=== PATIENT | male | born 1965 | race Caucasian/White ===

== ENCOUNTER 2023-06-26 07:31 | Inpatient (IN) | payer MEDICAID, MEDICARE ==
[~2023-06-26] VITALS: Ht 182.9 cm; Wt 111.7 kg
[2023-06-26] MEDS ORDERED: PIPERACILLIN-TAZOB 3.375GM 100 ML IV ONE (08:00)
[2023-06-26 08:04] LABS: Basophils # (auto) 0.1 10 ^3/uL (0-0.2); Eosinophils # (auto) 1.2 10 ^3/uL (0-0.8); Hematocrit 38.5 % (41.0-53.0); Hemoglobin 12.2 g/dL (13.5-17.5); Mean Corpuscular Volume 83.3 fL (80.0-100.0); Monocytes # (auto) 0.6 10 ^3/uL (0-1.3)
[2023-06-26 08:06] LABS: Basophils % (auto) 1.3 % (0.0-2.0); Eosinophils % (auto) 13.6 % (0.0-7.0); Lymphocytes # (auto) 1.8 10 ^3/uL (0.4-5.4); Lymphocytes % (auto) 20.3 % (10.0-50.0); Mean Corpuscular Hemoglobin 26.5 pg (28.0-32.0); Mean Corpuscular Hgb Conc. 31.8 g/dL (32.0-36.0); Monocytes % (auto) 7.1 % (0.0-12.0); Neutrophils # (auto) 5.3 10 ^3/uL (1.6-8.6); Neutrophils % (auto) 57.7 % (37.0-80.0); Nucleated Red Blood Cells % 0.1 %; Red Blood Cells 4.61 10^6/uL (4.5-5.90); Red Cell Distribution Width 16.4 % (11.8-14.3); White Blood Cell 9.1 10^3/uL (4.4-10.8)
[2023-06-26 08:22] LABS: Alanine Aminotransferase 22 U/L (7-40); Albumin 4.5 g/dL (3.2-4.8); Alkaline Phosphatase 90 U/L (46-116); Anion Gap 9 (5-15); Aspartate Aminotransferase 15 U/L (13-40); BUN/Creatinine Ratio 20.3 (10.0-20.0); Bilirubin, Total 0.2 mg/dL (0.2-1.0); Blood Urea Nitrogen 25 mg/dL (9-23); Calcium 9.6 mg/dL (8.5-10.1); Carbon Dioxide 26 mmol/L (20-30); Chloride 105 mmol/L (98-107); Glucose 174 mg/dL (74-106); Lactic Acid w/Reflex 2.8 mmol/L (0.4-2.0); Potassium 3.8 mmol/L (3.5-5.1); Sodium 140 mmol/L (136-145); Total Protein 7.3 g/dL (5.7-8.2)
[2023-06-26 10:01] VITALS: PULSE 98; RESP 18; O2SAT 97
[2023-06-26] MEDS ORDERED: ALBUTEROL SULF 2.5 MG/0.5ML(0.5%) NEB SOLN NEB ONE (10:15)
[2023-06-26] MEDS ORDERED: IPRATROPIUM BROM 0.5 MG/2.5ML INH SOL NEB ONE (10:15)
[2023-06-26] MEDS ORDERED: ALBUTEROL MEDNEB 2.5 mg/3ml NEB ONE (10:49)
[2023-06-26] MEDS ORDERED: DEXTROSE (50%) 50ML SYRG IV PRN (12:30)
[2023-06-26] MEDS ORDERED: ONDANSETRON HCL 4 MG/2 ML VIAL IV PRN (12:30)
[2023-06-26] MEDS ORDERED: DOCUSATE SOD 100 MG CAP PO PRN (12:30)
[2023-06-26] MEDS ORDERED: CLINDAMYCIN 900MG IV 50 ML IV ONE (12:30)
[2023-06-26] MEDS ORDERED: CLINDAMYCIN 600MG IV 50 ML IV ONE (13:30)
[2023-06-26] MEDS ORDERED: SODIUM CHLORIDE 0.9% 1,000 ML IV ONE (15:30)
[2023-06-26] MEDS: SODIUM CHLORIDE 0.9% 1,000 ML IV SCH ×2 (15:30→22:29)
[2023-06-26 15:47] LABS: COVID19 ANTIGEN SOFIA FIA NEGATIVE (NEGATIVE); Rapid Influenza A Negative (Negative); Rapid Influenza B Negative (Negative)
[2023-06-26 15:58] VITALS: PULSE 68; RESP 18; O2SAT 98
[2023-06-26 17:00] VITALS: BP 111/60; PULSE 75; RESP 18; TEMP 97.7; O2SAT 96
[2023-06-26] MEDS: MORPHINE SULFATE INJ 2 MG/ml SYRG IV PRN ×2 (17:16→23:33)
[2023-06-26] MEDS: ACCU-CHEK COMFORT CURVE STRIP VI SCH ×2 (17:16→22:28)
[2023-06-26] MEDS: InsuLIN REG 1unit/0.01ml Soln (100units/ml) SC SCH ×2 (17:17→22:28)
[2023-06-26 20:00] VITALS: BP 115/61; PULSE 81; RESP 20; TEMP 98.4; O2SAT 96
[2023-06-26] MEDS ORDERED: OXCA600T3 PO (20:31)
[2023-06-26 22:00] VITALS: BP 115/61; PULSE 81; RESP 20; TEMP 98.4; O2SAT 96
[2023-06-26] MEDS ORDERED: hydrOXYzine HCL 10 MG TAB PO ONE (22:00)
[2023-06-26] MEDS: CLINDAMYCIN 300MG IV 50 ML IV SCH (22:20)
[2023-06-27] MEDS ORDERED: ASPI325T4 PO (00:03)
[2023-06-27] MEDS ORDERED: GABA-339 PO (00:03)
[2023-06-27] MEDS ORDERED: CETI10TA2 PO (00:54)
[2023-06-27] MEDS ORDERED: METF-370 PO (00:55)
[2023-06-27] MEDS ORDERED: IBUP-1456 PO (00:56)
[2023-06-27] MEDS ORDERED: TRAZ-227 PO (00:57)
[2023-06-27] MEDS ORDERED: FLUT0.05 NAS (00:57)
[2023-06-27] MEDS ORDERED: LISI20TA56 PO (00:58)
[2023-06-27] MEDS ORDERED: MODA200T73 PO (00:59)
[2023-06-27] MEDS ORDERED: ARIP1TAB7 PO (01:00)
[2023-06-27] MEDS ORDERED: ATOR20TA50 PO (01:00)
[2023-06-27] MEDS ORDERED: LAMO200T34 PO (01:02)
[2023-06-27] MEDS ORDERED: ZOLP10TA6 PO (01:02)
[2023-06-27] MEDS ORDERED: ACET300T57 PO (01:03)
[2023-06-27] MEDS: SODIUM CHLORIDE 0.9% 1,000 ML IV SCH ×3 (04:50→18:10)
[2023-06-27] MEDS: CLINDAMYCIN 300MG IV 50 ML IV SCH ×3 (06:07→22:19)
[2023-06-27] MEDS: ACCU-CHEK COMFORT CURVE STRIP VI SCH ×4 (06:08→22:19)
[2023-06-27 06:12] LABS: Basophils # (auto) 0.1 10 ^3/uL (0-0.2); Lymphocytes # (auto) 1.1 10 ^3/uL (0.4-5.4); Mean Corpuscular Hemoglobin 26.5 pg (28.0-32.0)
[2023-06-27 06:15] LABS: Basophils % (auto) 1.1 % (0.0-2.0); Eosinophils % (auto) 12.2 % (0.0-7.0); Hematocrit 36.4 % (41.0-53.0); Hemoglobin 11.8 g/dL (13.5-17.5); Lymphocytes % (auto) 14.1 % (10.0-50.0); Mean Corpuscular Hgb Conc. 32.5 g/dL (32.0-36.0); Mean Corpuscular Volume 81.5 fL (80.0-100.0); Monocytes # (auto) 0.5 10 ^3/uL (0-1.3); Monocytes % (auto) 6.1 % (0.0-12.0); Neutrophils # (auto) 5.2 10 ^3/uL (1.6-8.6); Neutrophils % (auto) 66.5 % (37.0-80.0); Nucleated Red Blood Cells % 0.1 %; Red Blood Cells 4.46 10^6/uL (4.5-5.90); Red Cell Distribution Width 16.1 % (11.8-14.3); White Blood Cell 7.8 10^3/uL (4.4-10.8)
[2023-06-27] MEDS: InsuLIN REG 1unit/0.01ml Soln (100units/ml) SC SCH ×4 (06:18→22:27)
[2023-06-27 06:22] LABS: Alanine Aminotransferase 23 U/L (7-40); Albumin 4.2 g/dL (3.2-4.8); Alkaline Phosphatase 82 U/L (46-116); Anion Gap 8 (5-15); Aspartate Aminotransferase 15 U/L (13-40); BUN/Creatinine Ratio 18.1 (10.0-20.0); Blood Urea Nitrogen 17 mg/dL (9-23); Calcium 9.1 mg/dL (8.5-10.1); Carbon Dioxide 23 mmol/L (20-30); Chloride 107 mmol/L (98-107); Glucose 131 mg/dL (74-106); Sodium 138 mmol/L (136-145)
[2023-06-27 06:23] LABS: Bilirubin, Total 0.4 mg/dL (0.2-1.0); Total Protein 6.7 g/dL (5.7-8.2)
[2023-06-27 08:00] VITALS: PULSE 62; RESP 16; O2SAT 95
[2023-06-27 09:00] VITALS: BP 111/54; PULSE 62; RESP 16; TEMP 98.8; O2SAT 95
[2023-06-27] MEDS: DAKINS QUARTER STR 0.125% (NaHypochlorite) 473 ML TOPICAL SOL TOP SCH ×2 (11:38→22:00)
[2023-06-27] MEDS ORDERED: MODAFINIL 200 MG PO SCH (12:00)
[2023-06-27 13:00] VITALS: BP 129/72; PULSE 66; RESP 14; TEMP 98.6; O2SAT 98
[2023-06-27 17:00] VITALS: BP 112/77; PULSE 92; RESP 16; TEMP 98; O2SAT 98
[2023-06-27 20:00] VITALS: BP 108/70; PULSE 75; RESP 20; TEMP 98; O2SAT 95
[2023-06-27 22:00] VITALS: BP 108/70; PULSE 75; RESP 20; TEMP 98; O2SAT 94
[2023-06-27] MEDS: MODAFINIL 200 MG PO SCH (22:00)
[2023-06-27] MEDS: traZODone HCL 50 MG TAB PO SCH (22:20)
[2023-06-27] MEDS: OXcarbazepine 300 MG TAB PO SCH (22:20)
[2023-06-27] MEDS: GABAPENTIN 300 MG CAP PO SCH (22:20)
[2023-06-27] MEDS: MORPHINE SULFATE INJ 2 MG/ml SYRG IV PRN (22:35)
[2023-06-28] VITALS (7 sets, daily range): BP systolic 109–137; BP diastolic 55–72; PULSE 70–76; RESP 14–18; TEMP 97.9–99.2; O2SAT 92–95
[2023-06-28] MEDS: ZOLPIDEM TARTRATE 5 MG TAB PO SCH ×2 (00:02→23:32)
[2023-06-28] MEDS: SODIUM CHLORIDE 0.9% 1,000 ML IV SCH ×5 (00:50→23:33)
[2023-06-28] MEDS: MODAFINIL 200 MG PO SCH ×3 (06:00→22:05)
[2023-06-28] MEDS: CLINDAMYCIN 300MG IV 50 ML IV SCH ×3 (06:17→22:07)
[2023-06-28] MEDS: ACCU-CHEK COMFORT CURVE STRIP VI SCH ×4 (06:22→22:08)
[2023-06-28] MEDS: InsuLIN REG 1unit/0.01ml Soln (100units/ml) SC SCH ×4 (06:22→22:13)
[2023-06-28] MEDS: MORPHINE SULFATE INJ 2 MG/ml SYRG IV PRN ×3 (08:28→22:19)
[2023-06-28] MEDS: LISINOPRIL 20 MG TAB PO SCH (09:23)
[2023-06-28] MEDS: ASPirin-EC 81 mg tab PO SCH (09:23)
[2023-06-28] MEDS: GABAPENTIN 300 MG CAP PO SCH ×2 (09:23→22:03)
[2023-06-28] MEDS: ATORVASTATIN 20 MG TAB PO SCH (09:24)
[2023-06-28] MEDS: LORATADINE 10 MG TAB PO SCH (09:24)
[2023-06-28] MEDS: lamoTRIgine 100 MG TAB PO SCH (09:24)
[2023-06-28] MEDS: OXcarbazepine 300 MG TAB PO SCH ×2 (09:24→22:03)
[2023-06-28] MEDS: DAKINS QUARTER STR 0.125% (NaHypochlorite) 473 ML TOPICAL SOL TOP SCH ×2 (09:27→22:49)
[2023-06-28] MEDS: traZODone HCL 50 MG TAB PO SCH (23:32)
[2023-06-29 05:00] VITALS: BP 117/63; PULSE 67; RESP 16; TEMP 97.4; O2SAT 96
[2023-06-29] MEDS: MODAFINIL 200 MG PO SCH ×2 (05:53→14:56)
[2023-06-29] MEDS: ACCU-CHEK COMFORT CURVE STRIP VI SCH ×3 (05:54→17:42)
[2023-06-29] MEDS: CLINDAMYCIN 300MG IV 50 ML IV SCH ×2 (05:54→14:54)
[2023-06-29] MEDS: SODIUM CHLORIDE 0.9% 1,000 ML IV SCH ×2 (05:55→16:50)
[2023-06-29] MEDS: InsuLIN REG 1unit/0.01ml Soln (100units/ml) SC SCH ×3 (06:03→17:43)
[2023-06-29 08:00] VITALS: PULSE 68; RESP 16; O2SAT 98
[2023-06-29 09:00] VITALS: BP 106/74; PULSE 68; RESP 16; TEMP 97.6; O2SAT 98
[2023-06-29] MEDS: ASPirin-EC 81 mg tab PO SCH (09:56)
[2023-06-29] MEDS: ATORVASTATIN 20 MG TAB PO SCH (09:56)
[2023-06-29] MEDS: lamoTRIgine 100 MG TAB PO SCH (09:57)
[2023-06-29] MEDS: OXcarbazepine 300 MG TAB PO SCH (09:57)
[2023-06-29] MEDS: LISINOPRIL 20 MG TAB PO SCH (09:57)
[2023-06-29] MEDS: LORATADINE 10 MG TAB PO SCH (09:57)
[2023-06-29] MEDS: GABAPENTIN 300 MG CAP PO SCH (09:57)
[2023-06-29] MEDS: DAKINS QUARTER STR 0.125% (NaHypochlorite) 473 ML TOPICAL SOL TOP SCH (09:59)
[2023-06-29] MEDS ORDERED: LEVO500T91 PO (11:35)
[2023-06-29] MEDS ORDERED: ACET300T57 PO (12:15)
[2023-06-29 13:00] VITALS: BP 115/56; PULSE 72; RESP 16; TEMP 98.1; O2SAT 96
[2023-06-29] MEDS: MORPHINE SULFATE INJ 2 MG/ml SYRG IV PRN (13:14)
[2023-06-29 17:00] VITALS: BP 110/46; PULSE 82; RESP 14; TEMP 98.6; O2SAT 96
[2023-06-29 17:11] VITALS: BP 110/46; PULSE 82; RESP 14; TEMP 98.6; O2SAT 98
== END 2023-06-29 17:50 | disposition home or self-care (01) | DRG 720 ==
LOC: ER 07:31 → OVERFLOW 12:46 → EAST 15:37
PROVIDERS: ADMIT Nurse Practitioner Family; ATTEND Internal Medicine
PROC: 0JBR0ZZ Excision of Left Foot Subcutaneous Tissue and Fascia, Open Approach (ICD-10-PCS; principal; 2023-06-27)
PROC: 0JBQ0ZZ Excision of Right Foot Subcutaneous Tissue and Fascia, Open Approach (ICD-10-PCS; 2023-06-27)
DX: A41.9 Sepsis, unspecified organism (principal); E11.621 Type 2 diabetes mellitus with foot ulcer; L97.519 Non-pressure chronic ulcer of other part of right foot with unspecified severity; I50.9 Heart failure, unspecified; L03.031 Cellulitis of right toe; I11.0 Hypertensive heart disease with heart failure; E11.65 Type 2 diabetes mellitus with hyperglycemia; F31.9 Bipolar disorder, unspecified; L03.032 Cellulitis of left toe; J98.11 Atelectasis; L97.529 Non-pressure chronic ulcer of other part of left foot with unspecified severity; Z88.1 Allergy status to other antibiotic agents; S92.402A Displaced unspecified fracture of left great toe, initial encounter for closed fracture; X58.XXXA Exposure to other specified factors, initial encounter; Y93.89 Activity, other specified; Y92.89 Other specified places as the place of occurrence of the external cause; Y99.8 Other external cause status
CPT/HCPCS: 11042; 36415; 71045; 73700; 80053; 82962; 83036; 83605; 83880; 85025; 87040; 87426; 87804; 93925; 93970; 94640; 96365; G0378; J1815; J2543; J3490

== ENCOUNTER → 2023-07-17 | Outpatient (CLI) | payer MEDICAID ==
[~2023-07-17] MED LIST: ACET300T57 PO; ARIP1TAB7 PO; ASPI325T4 PO; ATOR20TA50 PO; CETI10TA2 PO; FLUT0.05 NAS; GABA-339 PO; IBUP-1456 PO; LAMO200T34 PO; LEVO500T91 PO; LISI20TA56 PO; METF-370 PO; MODA200T73 PO; OXCA600T3 PO; TRAZ-227 PO; ZOLP10TA6 PO
== END | disposition home or self-care (01) ==
LOC: LAB 06:27
PROVIDERS: ATTEND Podiatrist
DX: E11.621 Type 2 diabetes mellitus with foot ulcer (principal)
CPT/HCPCS: 87075; 87205